=== PATIENT | male | born 1950 | race Caucasian/White ===

== ENCOUNTER → 2017-02-11 | Outpatient (CLI) | payer MEDICARE ==
[~2017-02-11] MED LIST: ALBU8.5H3 INH; APIX5TAB PO; ASPI325T4 PO; DILT180C53 PO; FURO-92 PO; METH4TAB2 PO; MINO50CA PO; POTA20TA6 PO
== END | disposition home or self-care (01) ==
LOC: CVU 13:07
PROVIDERS: ATTEND Internal Medicine Cardiovascular Disease
DX: R60.0 Localized edema (principal)
CPT/HCPCS: 93970

== ENCOUNTER 2020-10-03 00:35 | Emergency (ER) | payer MEDICARE, OTHER ==
[~2020-10-03] VITALS: Ht 182.9 cm; Wt 159.0 kg
[~2020-10-03 00:35] MED LIST changes: -ALBU8.5H3 INH; +ALBU8.5H8 INH; +ASPI325T17 PO; -ASPI325T4 PO; -MINO50CA PO; +MINO50CA3 PO
[2020-10-03] MEDS ORDERED: LIDOCAINE 1%-EPI 1:100K, 20ML INFIL ONE (01:00)
--- NOTE | 2020-10-03 01:16 | NUR ---
Patient comes in with complaints of testicles bleeding. Patient noted to have a large amount of blood in pants. Patient stated that he is on coumadin. MD at bedside.
[2020-10-03 01:33] VITALS: BP 138/85
== END 2020-10-03 01:59 | disposition home or self-care (01) ==
LOC: ED 01:30
DX: S31.31XA Laceration without foreign body of scrotum and testes, initial encounter (principal); I48.91 Unspecified atrial fibrillation; W26.9XXA Contact with unspecified sharp object(s), initial encounter; Y93.89 Activity, other specified; Y92.89 Other specified places as the place of occurrence of the external cause; Y99.8 Other external cause status
CPT/HCPCS: 12001; 99282